=== PATIENT | female | born 1950 | race African-American/Black ===

== ENCOUNTER 2018-03-22 11:40 | Emergency (ER) | payer BC ==
[~2018-03-22] VITALS: Ht 157.5 cm; Wt 74.8 kg
--- NOTE | 2018-03-22 11:45 | NUR ---
BIB C/O LEFT FACIAL NUMBNESS AND PARALYSIS NOTICED SUNDAY NIGHT. NO OTHER WEAKNESS STATED. NO NEURO DEFICITS NOTED. A/OX 4, BREATHING EVEN AND UNLABORED. NO SOB, NAD, VITALS STABLE. SAFETY AND COMFORT MEASURES IN PLACE. AWAITING MD ORDERS.
--- NOTE | 2018-03-22 12:32 | NUR ---
PATIENT TAKEN TO CT VIA STRETCHER.
--- NOTE | 2018-03-22 12:45 | NUR ---
PATIENT RETURNED FROM CT IN STABLE CONDITION.
[2018-03-22 13:15] VITALS: BP 159/10
--- NOTE | 2018-03-22 13:16 | NUR ---
Patient discharged to home in stable condition. Written and verbal after care instructions given. Patient verbalizes understanding of instruction.
== END 2018-03-22 13:16 | disposition home or self-care (01) ==
LOC: ER 11:41
DX: G51.0 Bell's palsy (principal); I10 Essential (primary) hypertension; E78.00 Pure hypercholesterolemia, unspecified; Z88.0 Allergy status to penicillin
CPT/HCPCS: 70450-TC; 82962-TC; A4606; Z7610